=== PATIENT | female | born 1975 | race Caucasian/White ===

== ENCOUNTER 2020-04-07 23:50 | Emergency (ER) | payer SELFPAY ==
[~2020-04-07] VITALS: Ht 152.4 cm; Wt 52.2 kg
[2020-04-07 23:57] VITALS: BP 163/89
[2020-04-08] MEDS ORDERED: ALUMINUM HYD/MAG/SIMETHICONE 30 ML, DICYCLOMINE HCL LIQUID 20 MG, LIDOCAINE VISCOUS 2% ... PO ONE ×3 (00:05)
[2020-04-08] MEDS ORDERED: KETOROLAC 15 MG/ML VIAL IVP ONE (00:10)
[2020-04-08] MEDS ORDERED: LIDOCAINE VISCOUS 2% 20 ML UDC ONE (00:14)
[2020-04-08] MEDS ORDERED: ALUMINUM HYD/MAG/SIMETHICONE 30 ML UDC ONE (00:14)
[2020-04-08] MEDS ORDERED: DICYCLOMINE HCL LIQUID 10 MG/5 ML UDC ONE (00:14)
[2020-04-08 00:26] LABS: BILIRUBIN,URINE NEGATIVE (NEGATIVE); BLOOD, URINE TRACE-I (NEGATIVE); COLOR,URINE YELLOW (YELLOW); LEUKOCYTE ESTERASE ,URINE NEGATIVE (NEGATIVE); NITRITE, URINE NEGATIVE (NEGATIVE); UGLUCOSE NEGATIVE (NEGATIVE)
[2020-04-08 00:30] LABS: APPEARANCE,URINE CLEAR (CLEAR)
[2020-04-08 00:31] LABS: RBC,URINE 0-5 /HPF (0-5); WBC,URINE 0 /HPF (0-5)
[2020-04-08] MEDS ORDERED: NACL 0.9% 1,000 ML IV ONE (00:40)
[2020-04-08 00:45] LABS: ALBUMIN 3.8 g/dL (3.4-5.0); ANION GAP 16.2 (8-16); CARBON DIOXIDE 22.6 mmol/L (21-32); CREATININE 0.7 mg/dL (0.6-1.3); POTASSIUM 3.8 mmol/L (3.5-5.1); TOTAL BILIRUBIN 0.2 mg/dL (0.0-1.0)
[2020-04-08 01:19] LABS: BASOPHILS # (AUTO) 0.1 K/uL (0.00-0.22); BASOPHILS % (AUTO) 0.7 % (0.0-2.0); EOSINOPHILS # (AUTO) 0.2 K/uL (0-0.4); EOSINOPHILS % (AUTO) 1.7 % (0.0-4.0); HEMATOCRIT 39.8 % (36-48); HEMOGLOBIN 13.8 g/dL (12.0-16.0); LYMPHOCYTES # (AUTO) 2.5 K/uL (2.5-16.5); LYMPHOCYTES % (AUTO) 28.8 % (20.5-51.1); MEAN CORPUSCULAR HEMOGLOBIN 30 pg (27-31); MEAN CORPUSCULAR HGB CONC 35 g/dL (33-37); MEAN CORPUSCULAR VOLUME 86.4 fL (80-94); MONOCYTES # (AUTO) 0.7 K/uL (0.8-1.0); NEUTROPHILS # (AUTO) 5.3 K/uL (1.8-7.7); NEUTROPHILS % (AUTO) 60.8 % (42.2-75.2); PLATELET COUNT (AUTO) 397 K/uL (140-450); WHITE BLOOD COUNT (AUTO) 8.8 K/uL (4.8-10.8)
[2020-04-08] MEDS ORDERED: MORPHINE SULFATE 4 MG/ML SYR IVP ONE (01:35)
[2020-04-08 01:44] VITALS: BP 159/89
== END 2020-04-08 02:13 | disposition home or self-care (01) ==
LOC: MED 23:50
DX: K80.50 Calculus of bile duct without cholangitis or cholecystitis without obstruction (principal); K29.70 Gastritis, unspecified, without bleeding
CPT/HCPCS: 36415; 76705; 80053; 81001; 81025; 83690; 84484; 85025; 96361; 96374; 96375; 99284; J1885; J2270; J7030; Q0092; 93005

== ENCOUNTER 2022-01-12 18:21 | Inpatient (IN) | payer MEDICAID ==
[~2022-01-12] VITALS: Ht 152.4 cm; Wt 49.9 kg
--- NOTE | 2022-01-12 18:37 | NUR ---
name called in lobby and outside, no answer
[2022-01-12 18:50] VITALS: BP 128/81
[2022-01-12] MEDS ORDERED: NACL 0.9% 1,000 ML IV ONE (21:20)
[2022-01-12] MEDS ORDERED: KETOROLAC 30 MG/ML VIAL IVP ONE (21:20)
--- NOTE | 2022-01-12 21:55 | NUR ---
RECEIVED IN BED 9 FROM [facility]
--- NOTE | 2022-01-12 22:15 | NUR ---
US IN PROGRESS
[2022-01-12 22:20] LABS: BASOPHILS % (AUTO) 0.4 % (0.0-2.0); EOSINOPHILS # (AUTO) 0.1 K/uL (0-0.4); EOSINOPHILS % (AUTO) 1.2 % (0.0-4.0); HEMATOCRIT 40.1 % (36-48); HEMOGLOBIN 13.1 g/dL (12.0-16.0); LYMPHOCYTES # (AUTO) 2.6 K/uL (2.5-16.5); LYMPHOCYTES % (AUTO) 37.8 % (20.5-51.1); MEAN CORPUSCULAR HEMOGLOBIN 28 pg (27-31); MEAN CORPUSCULAR HGB CONC 33 g/dL (33-37); MONOCYTES # (AUTO) 0.6 K/uL (0.8-1.0); MONOCYTES % (AUTO) 8.1 % (1.7-9.3); NEUTROPHILS # (AUTO) 3.6 K/uL (1.8-7.7); NEUTROPHILS % (AUTO) 52.5 % (42.2-75.2); PLATELET COUNT (AUTO) 333 K/uL (140-450); RED BLOOD CELL COUNT(AUTO) 4.61 MIL/uL (4.20-5.40); RED CELL DISTRIBUTION WIDTH 13.1 % (11.6-13.7); WHITE BLOOD COUNT (AUTO) 6.9 K/uL (4.8-10.8)
[2022-01-12 22:35] LABS: ALBUMIN 3.9 g/dL (3.4-5.0); ANION GAP 12.4 (8-16); CARBON DIOXIDE 26.5 mmol/L (21-32); CREATININE 0.8 mg/dL (0.6-1.3); POTASSIUM 3.9 mmol/L (3.5-5.1); TOTAL BILIRUBIN 0.2 mg/dL (0.0-1.0)
[2022-01-12] MEDS ORDERED: KETOROLAC 30 MG/ML VIAL ONE (22:49)
--- NOTE | 2022-01-12 23:55 | NUR ---
resting comfortably with eyes closed. respirations regular and unlabored
--- NOTE | 2022-01-13 02:00 | NUR ---
CONTINUES TO REST WITH EYES CLOSED IN NAD
--- NOTE | 2022-01-13 06:00 | NUR ---
AWAKENED WITH EASE. DENIES PAIN OR DISCOMFORT AT THIS TIME
--- NOTE | 2022-01-13 06:55 | NUR ---
moved to er bed 3
--- NOTE | 2022-01-13 07:18 | NUR ---
Recieved report from LI Young for transfer of care.
[2022-01-13] MEDS ORDERED: MORPHINE SULFATE 2 MG/ML SYR IVP PRN (07:40)
[2022-01-13] MEDS ORDERED: HYDROcodone/APAP 7.5/325 MG 1 TAB PO PRN (07:50)
[2022-01-13] MEDS ORDERED: POTASSIUM CHLORIDE 10 MEQ TABER PO PRN (07:50)
[2022-01-13] MEDS ORDERED: DOCUSATE SODIUM 100 MG GELCAP PO PRN (07:50)
[2022-01-13] MEDS ORDERED: ACETAMINOPHEN 325 MG TAB PO PRN (07:50)
[2022-01-13] MEDS ORDERED: ZOLPIDEM 5 MG TAB PO PRN (07:50)
[2022-01-13] MEDS ORDERED: guaiFENesin DM 200/20 MG-10 ML 10 ML UDC PO PRN (07:50)
[2022-01-13] MEDS ORDERED: ONDANSETRON 4 MG/2 ML VIAL IM/IVP PRN (07:50)
[2022-01-13] MEDS: NACL 0.9% 1,000 ML IV SCH ×2 (08:00→16:00)
--- NOTE | 2022-01-13 08:02 | NUR ---
Dr. Ewing evaluating patient at bedside.
--- NOTE | 2022-01-13 08:16 | NUR ---
Recieved new orders from Dr. Ewing for Chest X-Ray and EKG prior to patients surgery. Orders documented.
--- NOTE | 2022-01-13 08:19 | NUR ---
X-ray at bedside.
--- NOTE | 2022-01-13 08:27 | NUR ---
Patient ambulated to the restroom with steady gait.
--- NOTE | 2022-01-13 08:31 | NUR ---
Urine sample obtained, walked to lab.
[2022-01-13 08:48] LABS: PHOSPHORUS 2.6 mg/dL (2.5-4.9)
[2022-01-13] MEDS: PANTOPRAZOLE 40 MG TABEC PO SCH (09:12)
[2022-01-13 09:14] LABS: ALBUMIN 3.2 g/dL (3.4-5.0); ANION GAP 10.2 (8-16); CREATININE 0.5 mg/dL (0.6-1.3); POTASSIUM 4.2 mmol/L (3.5-5.1); TOTAL BILIRUBIN 0.4 mg/dL (0.0-1.0)
--- NOTE | 2022-01-13 10:08 | NUR ---
Patient is resting on bed, respirations even and unlabored. Needs met by staff.
--- NOTE | 2022-01-13 13:24 | NUR ---
Dr. Ewing took patient to surgery via [facility].
--- NOTE | 2022-01-13 13:25 | NUR ---
Transfer of care at this time. OR staff took patient via gurney.
[2022-01-13] MEDS ORDERED: BUPIVACAINE-MPF 0.25% 30 ML VIAL INJ ONE (13:38)
[2022-01-13] MEDS ORDERED: LIDOCAINE/EPI 1% 1:100000 20 ML VIAL INJ ONE (13:38)
[2022-01-13] MEDS ORDERED: DESFLURANE 240 ML BTL INH ONE (13:48)
[2022-01-13] MEDS ORDERED: SUCCINYLCHOLINE CHLORIDE 200 MG/10 ML VIAL IVP ONE (13:53)
[2022-01-13] MEDS ORDERED: PROPOFOL 200 MG/20 ML VIAL IV ONE (13:53)
[2022-01-13] MEDS ORDERED: fentaNYL citrate 0.05 MG/ML VIAL ONE (13:58)
[2022-01-13] MEDS ORDERED: KETOROLAC 30 MG/ML VIAL ONE (14:00)
[2022-01-13] MEDS ORDERED: ROCURONIUM 50 MG/5 ML VIAL IV ONE (14:01)
[2022-01-13] MEDS ORDERED: DEXAMETHASONE 4 MG/ML VIAL ONE (14:01)
[2022-01-13] MEDS ORDERED: ONDANSETRON 4 MG/2 ML VIAL ONE (14:01)
[2022-01-13] MEDS ORDERED: ceFAZolin 1,000 MG VIAL ONE ×2 (14:04)
[2022-01-13] MEDS ORDERED: HYDROmorphone PFS 2 MG/ML SYR ONE ×2 (14:07→15:11)
[2022-01-13] MEDS ORDERED: ONDANSETRON 4 MG/2 ML VIAL IVP PRN (14:15)
[2022-01-13 14:16] LABS: CORRECTED WHITE BLOOD COUNT 6.7 K/uL (4.5-11.0); HEMATOCRIT 40.3 % (36-48); RED BLOOD CELL COUNT(AUTO) 4.53 MIL/uL (4.20-5.40); WHITE BLOOD COUNT (AUTO) 6.7 K/uL (4.8-10.8)
[2022-01-13 14:17] LABS: MEAN CORPUSCULAR HEMOGLOBIN 29 pg (27-31); MEAN CORPUSCULAR HGB CONC 32 g/dL (33-37); PLATELET COUNT (AUTO) 341 K/uL (140-450); RED CELL DISTRIBUTION WIDTH 13.5 % (11.6-13.7)
[2022-01-13 14:18] LABS: BASOPHILS % (AUTO) 1.5 % (0.0-2.0); EOSINOPHILS # (AUTO) 0.1 K/uL (0-0.4); EOSINOPHILS % (AUTO) 1.2 % (0.0-4.0); LYMPHOCYTES # (AUTO) 2.5 K/uL (2.5-16.5); LYMPHOCYTES % (AUTO) 36.6 % (20.5-51.1); MONOCYTES # (AUTO) 0.6 K/uL (0.8-1.0); MONOCYTES % (AUTO) 8.4 % (1.7-9.3); NEUTROPHILS # (AUTO) 3.5 K/uL (1.8-7.7); NEUTROPHILS % (AUTO) 52.3 % (42.2-75.2)
[2022-01-13 14:19] LABS: BASOPHILS # (AUTO) 0.1 K/uL (0.00-0.22)
[2022-01-13] MEDS ORDERED: SUGAMMADEX SODIUM 200 MG/2 ML VIAL IV ONE (14:23)
[2022-01-13] MEDS: HYDROmorphone 1 MG/ML AMP IVP PRN ×4 (15:05→15:31)
--- NOTE | 2022-01-13 15:49 | NUR ---
PATIENT HAS BEEN SCREENED AND CATEGORIZED LOW NUTRITION RISK. PATIENT WILL BE SEEN WITHIN 7 DAYS OF ADMISSION. 01/19/[address]
[2022-01-13 15:55] VITALS: BP 108/57
--- NOTE | 2022-01-13 15:55 | NUR ---
PATIENT ARRIVE VIA GURNEY ASLEEP BUT ABLE TO WAKE UP AND TALK WHEN CALLED. RESPIRATION EVEN AND NOT LABORED ON ROOM AIR. IV SITE ON LEFT HAND JOSSUE 18 NO SIGN AND SYMPTOMS OF INFECTION.. RM MAY GAVE BED SITE REPORT. PATIENT ASSISTED TO BED AND MAKE PATIENT COMFORTABLE. ORIENTED TO ROOM, CALL LIGHT, BATHROOM, VISITING, SMOKING POLICIES. CALL LIGHT WITH IN EASY REACH.
--- NOTE | 2022-01-13 17:34 | NUR ---
WHEN I CHECKED THE VITAL SIGN OF THE PATIENT NOTED IV IS OUT. IN [facility] SHE SAID SHE DIDN'T KNOW WHAT HAPPEN. I TOLD HER THAT I WILL TRY TO PUT NEW IV.
--- NOTE | 2022-01-13 19:30 | NUR ---
RECEIVED PT ENDORSEMENT FROM DAY SHIFT NURSE. PT IS AWAKE, ALERT AND VERBALLY RESPONSIVE. PT IS EATING DINNER AND CONSUMED 50% OF FOOD PREPARED. SURGICAL INCISIONS ARE DRY AND LEAVE OPEN TO THE AIR. PT VERBALIZED OF BEARABLE PAIN. PT IS ON CARDIAC DIET. SALINE LOCK ON RIGHT HAND INTACT AND PATENT, INFUSING WELL NORMAL SALINE AT 60 ML/HR.
--- NOTE | 2022-01-13 19:33 | NUR ---
GAVE REPORT TO ELECTRIC MOTOR ASSEMBLER NURSE FOR CONTINUITY OF CARE.
[2022-01-13 20:00] VITALS: BP 119/64
[2022-01-13] MEDS: HYDROcodone/APAP 5/325 MG 1 TAB TAB PO PRN (21:57)
--- NOTE | 2022-01-13 21:57 | NUR ---
PT COMPLAINTS OF MODERATE ABDOMINAL PAIN OF 6/10, PAIN MED ADMINISTERED ORDERED.
--- NOTE | 2022-01-13 22:00 | NUR ---
PT RIGHT FOREARM NOTED SWOLLEN AND PT COMPLAINTS OF PAIN ON IV SITE. DISCONTINUE RIGHT IV SITE. NEW SALINE LOCK INSERTED SUCCESSFULLY X 1 ON LEFT HAND 22G, BLOOD BACK FLOW PRESENT. CONTINUE IV FLUID OF NORMAL SALINE OF 60 ML/HR. PT DENIED OF PAIN ON IV SITE.
--- NOTE | 2022-01-13 22:57 | NUR ---
REASSESSMENT OF PAIN, PT IS ASLEEP, NO FACIAL GRIMACING. NO SOB OR DISTRESS. CALL LIGHT WITHIN THE REACH.
[2022-01-14] VITALS: BP 115/73
[2022-01-14] MEDS: HYDROmorphone 1 MG/ML AMP IVP PRN ×3 (02:57→23:08)
--- NOTE | 2022-01-14 02:57 | NUR ---
PT COMPLAINTS OF SEVERE PAIN 9/10 ON POST SURGICAL INCISION. PAIN MEDICATION DILAUDID ADMINISTERED ORDERED.
--- NOTE | 2022-01-14 03:57 | NUR ---
REASSESSMENT OF PAIN, PT IS SLEEPING. NO FACIAL GRIMACING, NO SOB OR DISTRESS.
[2022-01-14 04:00] VITALS: BP 126/65
[2022-01-14 06:01] LABS: BASOPHILS % (AUTO) 0.1 % (0.0-2.0); HEMATOCRIT 36.4 % (36-48); LYMPHOCYTES # (AUTO) 1.2 K/uL (2.5-16.5); LYMPHOCYTES % (AUTO) 11.1 % (20.5-51.1); MEAN CORPUSCULAR HEMOGLOBIN 29 pg (27-31); MEAN CORPUSCULAR HGB CONC 33 g/dL (33-37); MEAN CORPUSCULAR VOLUME 86.8 fL (80-94); MONOCYTES # (AUTO) 0.5 K/uL (0.8-1.0); MONOCYTES % (AUTO) 4.4 % (1.7-9.3); NEUTROPHILS # (AUTO) 9.4 K/uL (1.8-7.7); NEUTROPHILS % (AUTO) 84.4 % (42.2-75.2); PLATELET COUNT (AUTO) 314 K/uL (140-450); RED CELL DISTRIBUTION WIDTH 12.9 % (11.6-13.7); WHITE BLOOD COUNT (AUTO) 11.2 K/uL (4.8-10.8)
[2022-01-14 06:34] LABS: ALBUMIN 3.5 g/dL (3.4-5.0); ANION GAP 14.4 (8-16); CARBON DIOXIDE 24.7 mmol/L (21-32); POTASSIUM 4.1 mmol/L (3.5-5.1); TOTAL BILIRUBIN 0.4 mg/dL (0.0-1.0)
[2022-01-14 06:59] LABS: CREATININE 0.6 mg/dL (0.6-1.3)
--- NOTE | 2022-01-14 07:13 | NUR ---
PT IS ON STABLE CONDITION, ON BED. PT IS NPO. ENDORSED TO DAY SHIFT NURSE FOR CONTINUITY OF PT CARE. ALL SAFETY MEASURES IN PLACE.
--- NOTE | 2022-01-14 07:15 | NUR ---
RECEIVED REPORT FROM DIE MECHANIC NURSE FOR CONTINUITY OF CARE. PATIENT AWAKE NO DISTRESS NOTED. RESPIRATION EVEN AND NOT LABORED NO SHORTNESS OF BREATH. ALL SAFETY MEASURE IN PLACE. IV SITE ON LEFT HAND JOSSUE 22 RUNNING 60/HOUR OF NS. DENIES PAIN AT THIS TIME.
[2022-01-14 08:00] VITALS: BP 121/76
[2022-01-14] MEDS: PANTOPRAZOLE 40 MG TABEC PO SCH (08:25)
[2022-01-14] MEDS: HYDROcodone/APAP 5/325 MG 1 TAB TAB PO PRN (10:50)
[2022-01-14 12:12] LABS: APPEARANCE,URINE CLEAR (CLEAR); BILIRUBIN,URINE NEGATIVE (NEGATIVE); BLOOD, URINE NEGATIVE (NEGATIVE); COLOR,URINE YELLOW (YELLOW); LEUKOCYTE ESTERASE ,URINE NEGATIVE (NEGATIVE); NITRITE, URINE NEGATIVE (NEGATIVE); UGLUCOSE NEGATIVE (NEGATIVE)
[2022-01-14 12:39] LABS: BARBITURATE, URINE NEGATIVE ng/ml (NEG <=200); BENZODIAZEPINE, URINE NEGATIVE ng/mL (NEG <=200); CANNABINOID, URINE NEGATIVE ng/mL (NEG <=50); COCAINE, URINE NEGATIVE ng/mL (NEG <=300); OPIATE, URINE POSITIVE ng/mL (NEG <=2000); PHENCYCLIDINE SCREEN,URINE NEGATIVE ng/mL (NEG <=25)
--- NOTE | 2022-01-14 13:33 | NUR ---
PT CPOMPLAINED OF PAIN RATE OF 9/10 AND WAS MEDICATED NOW. NO OTHER SIGNS OF DISTRESS NOTED.
--- NOTE | 2022-01-14 14:25 | NUR ---
AWAKE AND ALERT VERBALLY RESPONSIVE EQUAL CHEST RISE GOOD AERATION THROUGHOUT BILATERAL LUNG BROWN AIRWAY PATENT TOLERATED INCENTIVE SPIROMETRY (IS) THERAPY WELL WITHOUT COMPLICATIONS NOTED ENCOURAGED PATIENT TO USE IS EVERY 1-2 HOURS WHILE AWAKE
[2022-01-14 16:00] VITALS: BP 117/64
--- NOTE | 2022-01-14 17:07 | NUR ---
NOTED BLOOD PRESSURE THAT IT DATA ARCHITECT TOOK IS BELOW 90 I RECHECKED AND IT WAS 117/64 PATIENT ALERT AND EATING BANANA NOTED WATER PITCHER IS EMPTY AND I GET ICE WATER AND PUDDING. NO PAIN AT THIS TIME. NO SIGN AND SYMPTOMS OF INFECTION OR BLEEDING.
[2022-01-14] MEDS: NACL 0.9% 1,000 ML IV SCH (18:52)
--- NOTE | 2022-01-14 18:59 | NUR ---
PATIENT ON SITTING ON HER BED EATING DINNER NO SIGN OF PAIN OR ANY DISCOMFORT. NEW IV FLUID REPLACED. TOLERATED WELL. PATIENT NO FEVER OR BLEEDING NOTED.
--- NOTE | 2022-01-14 19:27 | NUR ---
GAVE REPORT TO POWER GENERATING PLANT OPERATOR NURSE FOR CONTINUITY OF CARE.
--- NOTE | 2022-01-14 19:28 | NUR ---
RECEIVED ENDORSEMENT FROM DAY SHIFT NURSE FOR CONTINUITY OF PT CARE. PT IS AWAKE, ALERT, ORIENTED X 4 AND VERBALLY RESPONSIVE. NO SOB OR DISTRESS. IV FLUID NORMAL SALINE IS INFUSING WELL AT 60 ML.
[2022-01-14 20:00] VITALS: BP 98/60
--- NOTE | 2022-01-14 20:03 | NUR ---
PT UN-AVAILABLE AT THIS TIME WILL RETURN LATER FOR I.S.
--- NOTE | 2022-01-14 23:08 | NUR ---
PT COMPLAINTS OF SEVERE PAIN 8/10 OF POST SURGICAL PAIN ON ABDOMEN. PAIN MEDICATION ADMINISTERED ORDERED.
--- NOTE | 2022-01-15 00:08 | NUR ---
PT IS ASLEEP, NO FACIAL GRIMACING.
--- NOTE | 2022-01-15 01:30 | NUR ---
PT TRANSFERRED TO ROOM 106A.
--- NOTE | 2022-01-15 07:10 | NUR ---
PT IS ON STABLE CONDITION, AWAKE, ALERT AND VERBALLY RESPONSIVE. IV FLUID NS IS INFUSING WELL AT 60ML/HR. NO SOB OR DISTRESS. ALL SAFETY MEASURES IN PLACE. CALL LIGHT WITHIN THE REACH. ENDORSED TO DAY SHIFT NURSE FOR CONTINUITY OF PT CARE.
--- NOTE | 2022-01-15 07:11 | NUR ---
RECEIVED ENDORSEMENT FROM SAUSAGE WRAPPER NURSE FOR CONTINUITY OF CARE. PATIENT AWAKE VERBALLY RESPONSIVE. NO DISTRESS NOTED. RESPIRATION EVEN AND NOT LABORED NO SHORTNESS OF BREATH. ON ROOM AIR . IV SITE ON LEFT HAND JOSSUE 22 RUNNING NS AT 60CC/HOUR. ALL SAFETY MEASURE IN PLACE. REPOSITION PATIENT.
[2022-01-15 07:30] LABS: BASOPHILS % (AUTO) 0.3 % (0.0-2.0); EOSINOPHILS % (AUTO) 0.4 % (0.0-4.0); HEMATOCRIT 32.2 % (36-48); HEMOGLOBIN 10.8 g/dL (12.0-16.0); LYMPHOCYTES # (AUTO) 2.4 K/uL (2.5-16.5); LYMPHOCYTES % (AUTO) 30.1 % (20.5-51.1); MEAN CORPUSCULAR HEMOGLOBIN 29 pg (27-31); MEAN CORPUSCULAR HGB CONC 33 g/dL (33-37); MEAN CORPUSCULAR VOLUME 86.9 fL (80-94); MONOCYTES # (AUTO) 0.6 K/uL (0.8-1.0); MONOCYTES % (AUTO) 7.6 % (1.7-9.3); NEUTROPHILS # (AUTO) 4.9 K/uL (1.8-7.7); NEUTROPHILS % (AUTO) 61.6 % (42.2-75.2); PLATELET COUNT (AUTO) 258 K/uL (140-450); RED BLOOD CELL COUNT(AUTO) 3.71 MIL/uL (4.20-5.40); RED CELL DISTRIBUTION WIDTH 12.8 % (11.6-13.7); WHITE BLOOD COUNT (AUTO) 7.9 K/uL (4.8-10.8)
[2022-01-15 07:33] LABS: ALBUMIN 2.7 g/dL (3.4-5.0); ANION GAP 10.5 (8-16); CARBON DIOXIDE 26.7 mmol/L (21-32); CREATININE 0.6 mg/dL (0.6-1.3); POTASSIUM 4.2 mmol/L (3.5-5.1); TOTAL BILIRUBIN 0.2 mg/dL (0.0-1.0)
[2022-01-15] MEDS: PANTOPRAZOLE 40 MG TABEC PO SCH (09:25)
--- NOTE | 2022-01-15 09:25 | NUR ---
PATIENT AMBULATING FROM TOILET. GIVEN HER PROTONIX PATIENT COMPLAIN OF ABDOMINAL PAIN SITE OF SURGERY WILL GIVE MEDICATION.
[2022-01-15] MEDS: HYDROcodone/APAP 5/325 MG 1 TAB TAB PO PRN ×2 (09:41→15:36)
--- NOTE | 2022-01-15 09:41 | NUR ---
I CAME BACK TO GIVE PATIENT PAIN MEDICATION BUT SHE'S AT TOILET WAIT AND GIVE PAIN MEDICATION. CALL LIGHT WITH IN EASY REACH.
[2022-01-15] MEDS: NACL 0.9% 1,000 ML IV SCH (10:03)
[2022-01-15] MEDS ORDERED: IBUP-2213 PO (14:23)
[2022-01-15 14:38] VITALS: BP 126/78
--- NOTE | 2022-01-15 15:36 | NUR ---
PATIENT GIVEN PAIN MEDICATION FOR COMPLAIN OF ABDOMINAL PAIN. GIVEN DISCHARGE PACKET WITH INSTRUCTION VERBALIZED UNDERSTANDING WITH HELP OF OTHER [place] SPEAKING STAFF. WAITING FOR HER DAUGHTER TO COME AND PICK HER UP.
--- NOTE | 2022-01-15 16:00 | NUR ---
PATIENT DAUGHTER ARRIVED IN FRONT OF THE HOSPITAL TO SPEECH LANGUAGE ASSISTANT PATIENT. PATIENT NAME BAND REMOVED AND IV REMOVED WITH CATHETER INTACT. ALL BELONGING GIVEN. WHEELED PATIENT TO IN FRONT TO THEIR PRIVATE VEHICLE PATIENT ALERT AND ON STABLE CONDITION.
== END 2022-01-15 16:00 | disposition home or self-care (01) | DRG 263 ==
LOC: MED 18:21 → MMU 01-13 07:40 → MTU 01-13 12:23
PROVIDERS: ADMIT Student in an Organized Health Care Education/Training Program; ATTEND Student in an Organized Health Care Education/Training Program
PROC: 0FT44ZZ Resection of Gallbladder, Percutaneous Endoscopic Approach (ICD-10-PCS; principal; 2022-01-13 12:00)
DX: K80.00 Calculus of gallbladder with acute cholecystitis without obstruction (principal); Z20.822 Contact with and (suspected) exposure to COVID-19
CPT/HCPCS: 36415; 71045; 76705; 80053; 80305; 81003; 82150; 83605; 83690; 83735; 83880; 84100; 85025; 87040; 87081; 88304; 94010; 96361; 96365; 99285; J0330; J0690; J1100; J1170; J1885; J2001; J2405; J2704; J3010; J3490; J7030; Q0092